=== PATIENT | male | born 1960 | race African-American/Black ===

== ENCOUNTER 2017-12-19 18:00 | Inpatient (IN) | payer OTHER ==
[~2017-12-19] VITALS: Ht 170.2 cm; Wt 84.4 kg
[2017-12-19 18:07] VITALS: BP 126/81
[2017-12-19] MEDS ORDERED: LANTUS100 UNIT/M SUBQ (18:15)
[2017-12-19] MEDS ORDERED: COZAAR 25 MG TA25 M1 PO (18:15)
[2017-12-19] MEDS ORDERED: CRESTOR10 MG PO (18:16)
[2017-12-19] MEDS ORDERED: HYDROCHLOROTHIA25 M2 PO (18:16)
[2017-12-19] MEDS ORDERED: AMLODIPINE BESY10 MG PO (18:16)
[2017-12-19 18:43] LABS: HEMATOCRIT 35.4 % (42.0-52.0); HEMOGLOBIN 11.5 gm/dL (14.0-18.0); MCH 20.7 pg (26.0-34.0); MCHC 32.5 g/dL (28.0-37.0); MCV 63.9 fL (80.0-100.0); MPV 9.7 fl. (7.2-11.1); NUCLEATED RBCS 0 /100WBC; PLATELET COUNT* 196 thou/uL (150-400); RBC 5.54 mil/uL (4.50-6.00); RDW-CV 16.8 % (10.5-14.5); WBC 11.8 thou/uL (4.0-11.0)
[2017-12-19 18:48] LABS: CALCIUM 8.5 mg/dL (8.5-10.1); CREATININE 2.1 mg/dL (0.6-1.3); POTASSIUM 3.4 mmol/L (3.5-5.1)
[2017-12-19 18:49] LABS: APTT 31.9 Seconds (25.0-31.3); PROTIME 10.3 Seconds (9.20-11.50)
[2017-12-19 19:01] LABS: ALBUMIN 3.2 g/dL (3.4-5.0); CK-MB MASS 0.8 ng/mL (<0.5-3.6); TOTAL BILIRUBIN 0.8 mg/dL (<0.1-1.0); TOTAL PROTEIN 8.3 g/dL (6.4-8.2)
[2017-12-19 19:15] LABS: ABSOLUTE LYMPHOCYTES 2.2 thou/uL (0.8-5.3); ABSOLUTE NEUTROPHILS 7.6 thou/uL (1.6-8.1)
[2017-12-19 19:16] LABS: HYPOCHROMASIA 2+; PLATELET ESTIMATE ADEQUATE
[2017-12-19 19:17] LABS: MICROCYTES 2+
[2017-12-19 19:18] LABS: ANISOCYTOSIS 1+
[2017-12-19 20:38] LABS: URINE BILIRUBIN NEGATIVE (Negative); URINE BLOOD TRACE (Negative); URINE CLARITY CLEAR; URINE COLOR YELLOW; URINE GLUCOSE-RANDOM NEGATIVE (Negative); URINE KETONES NEGATIVE (Negative); URINE LEUKOCYTES-REFLEX NEGATIVE (Negative); URINE NITRITE-REFLEX NEGATIVE (Negative); URINE PROTEIN NEGATIVE (Negative); URINE SPECIFIC GRAVITY 1.015 (1.005-1.030); URINE UROBILINOGEN 0.2 E.U./dl (0.2-1.0)
[2017-12-19 20:46] LABS: AMP/METHAMP Negative (Negative); BARBITURATES Negative (Negative); BENZODIAZEPINES Negative (Negative); COCAINE Negative (Negative); METHADONE Negative (Negative); OPIATES Negative (Negative); PCP Negative (Negative); THC POSITIVE (Negative)
[2017-12-19 21:52] VITALS: BP 95/57
[2017-12-19 22:30] VITALS: BP 99/59
[2017-12-19 23:00] VITALS: BP 114/66
[2017-12-20] VITALS (17 sets, daily range): BP systolic 100–140; BP diastolic 57–84
[2017-12-20 03:47] LABS: HEMATOCRIT 30.9 % (42.0-52.0); HEMOGLOBIN 9.8 gm/dL (14.0-18.0); MCH 20.8 pg (26.0-34.0); MCHC 31.7 g/dL (28.0-37.0); MCV 65.5 fL (80.0-100.0); MPV 9.2 fl. (7.2-11.1); RBC 4.72 mil/uL (4.50-6.00); RDW-CV 17.2 % (10.5-14.5); WBC 8.8 thou/uL (4.0-11.0)
[2017-12-20 04:05] LABS: PHOSPHORUS* 3.8 mg/dL (2.5-4.9)
[2017-12-20 04:07] LABS: AMMONIA < 10 umol/L (11-32)
[2017-12-20 04:26] LABS: ALBUMIN 2.5 g/dL (3.4-5.0); CALCIUM 7.6 mg/dL (8.5-10.1); CREATININE 1.2 mg/dL (0.6-1.3); POTASSIUM 3.4 mmol/L (3.5-5.1); TOTAL BILIRUBIN 0.5 mg/dL (<0.1-1.0); TOTAL PROTEIN 6.8 g/dL (6.4-8.2)
[2017-12-20 08:55] LABS: % SATURATION 18 % (20-39); IRON 30 ug/dL (50-175)
--- NOTE | 2017-12-20 10:45 | EKG ---
[place] [address] ELECTROCARDIOGRAM REPORT Name: BILL HOUSE Room: [address] ADM IN M.R.#: [id number] Admission: 12/19/17 Attend Phys: Roni Hudson Discharge: Date of : 60 Report #: [id number] THIS REPORT FOR: //name// [facility] ED Test Date: 2017-12-19 Test Time: 18:22:35 Pat Name: BILL HOUSE Department: Room: [facility] Gender: M Conditioning Coach: KRIS : 1960 Requested By: Michaela Delgado Order Number: [id number] MD: Andrew Galdamez Measurements Intervals Crane Rate: 92 P: 59 MT: 163 QRS: 40 QRSD: 91 T: 66 QT: 384 QTc: 476 Interpretive Statements Sinus tachycardia Multiform ventricular premature complexes Minimal ST elevation, anterior leads Baseline wander in lead(s) I,II,aVR,aVL,V3,V5,V6 No previous ECG available for comparison Electronically Signed On 12-20-2017 10:45:16 CDT by Andrew Galdamez [email or web address] <ELECTRONICALLY SIGNED> By: Andrew Galdamez MD, [facility] 12/20/17 1045 182 182 Andrew Galdamez MD, [facility] /EPI
[2017-12-21 00:20] VITALS: BP 130/69
[2017-12-21 04:43] VITALS: BP 137/71
[2017-12-21 04:48] LABS: HEMATOCRIT 30.6 % (42.0-52.0); HEMOGLOBIN 9.9 gm/dL (14.0-18.0); MCH 20.8 pg (26.0-34.0); MCHC 32.4 g/dL (28.0-37.0); MCV 64.3 fL (80.0-100.0); RBC 4.75 mil/uL (4.50-6.00); RDW-CV 16.8 % (10.5-14.5); WBC 7.8 thou/uL (4.0-11.0)
[2017-12-21 05:02] LABS: ALBUMIN 2.5 g/dL (3.4-5.0); CREATININE 0.9 mg/dL (0.6-1.3); MAGNESIUM 1.7 mg/dL (1.8-2.4); POTASSIUM 3.5 mmol/L (3.5-5.1); TOTAL BILIRUBIN 0.8 mg/dL (<0.1-1.0); TOTAL PROTEIN 7.1 g/dL (6.4-8.2)
[2017-12-21 12:00] VITALS: BP 122/79
[2017-12-21 15:43] VITALS: BP 130/79
[2017-12-22] VITALS: BP 143/83
[2017-12-22 04:18] VITALS: BP 151/87
[2017-12-22 09:00] VITALS: BP 131/86
[2017-12-22 11:31] LABS: ABSOLUTE BASOPHILS 0.1 thou/uL (0.0-0.2); ABSOLUTE EOSINOPHILS 0.1 thou/uL (0.0-0.7); ABSOLUTE LYMPHOCYTES 2.4 thou/uL (0.8-5.3); ABSOLUTE NEUTROPHILS 3.9 thou/uL (1.6-8.1); HEMATOCRIT 30.4 % (42.0-52.0); HEMOGLOBIN 9.5 gm/dL (14.0-18.0); MCH 20.5 pg (26.0-34.0); MCHC 31.3 g/dL (28.0-37.0); MCV 65.5 fL (80.0-100.0); MONOCYTES 13.4 %; NUCLEATED RBCS 0 /100WBC; PLATELET COUNT* 239 thou/uL (150-400); POLYS 52.6 %; RBC 4.64 mil/uL (4.50-6.00); RDW-CV 16.8 % (10.5-14.5); WBC 7.5 thou/uL (4.0-11.0)
[2017-12-22 11:34] LABS: CALCIUM 7.9 mg/dL (8.5-10.1); CREATININE 0.8 mg/dL (0.6-1.3); POTASSIUM 3.6 mmol/L (3.5-5.1)
[2017-12-22 12:00] VITALS: BP 135/87
[2017-12-22 12:14] LABS: HYPOCHROMASIA 2+; MICROCYTES 2+; PLATELET ESTIMATE ADEQUATE; POIKILOCYTOSIS 1+; TARGET CELLS 1+
[2017-12-22 12:15] LABS: ANISOCYTOSIS 2+
[2017-12-22 16:00] VITALS: BP 166/86
[2017-12-22 20:00] VITALS: BP 159/86
[2017-12-23] VITALS: BP 144/78
[2017-12-23 04:00] VITALS: BP 167/88
[2017-12-23 04:52] LABS: HEMATOCRIT 28.4 % (42.0-52.0); HEMOGLOBIN 9.1 gm/dL (14.0-18.0); MCH 20.8 pg (26.0-34.0); MCHC 32.2 g/dL (28.0-37.0); MCV 64.7 fL (80.0-100.0); RBC 4.39 mil/uL (4.50-6.00); RDW-CV 17.1 % (10.5-14.5); WBC 8.7 thou/uL (4.0-11.0)
[2017-12-23 05:20] LABS: ALBUMIN 2.5 g/dL (3.4-5.0); CALCIUM 7.9 mg/dL (8.5-10.1); CREATININE 0.7 mg/dL (0.6-1.3); MAGNESIUM 1.3 mg/dL (1.8-2.4); POTASSIUM 3.5 mmol/L (3.5-5.1); TOTAL BILIRUBIN 0.6 mg/dL (<0.1-1.0); TOTAL PROTEIN 6.8 g/dL (6.4-8.2)
[2017-12-23 08:00] VITALS: BP 158/87
[2017-12-23] MEDS ORDERED: KEPPRA 500 MG500 M1 PO (11:25)
[2017-12-23 11:49] VITALS: BP 137/76
[2017-12-23 13:52] VITALS: BP 137/76
[2017-12-25 15:08] LABS: HGB SOLUBILITY Negative (Negative)
--- NOTE | 2018-01-03 09:32 | EEG ---
[address] [address] EEG STUDY REPORT Name: BILL [facility]SE Room: [address] IN M.R.#: [id number] Admission: 12/19/17 Attend Phys: Roni Hudson Discharge: 12/23/17 Date of : 60 Report #: [id number] THIS REPORT FOR: //name// CC: Elissa Coronado DATE OF SERVICE: 12/21/2017 This patient is being evaluated for syncope. EEG was done by placing the electrodes by standard 10-20 system of electrode placement. Both referential and sequential montages were used for recording. Background activity in this patient's EEG is about 10 Hz and 40 microvolt. It is a symmetrical activity. Photic stimulation is unremarkable. The patient went to sleep that is associated with bilateral slowing and vertex sharp waves. Throughout the record, no active epileptiform activity was noticed. IMPRESSION: This patient's EEG does not demonstrate any clear-cut epileptiform activity. It might be mentioned that EEG can be normal in a patient with a seizure disorder. Thank you very much for this referral. <ELECTRONICALLY SIGNED> By: Warren Menjivar MD 01/03/18 0932 1946 Pelena Menjivar MD /nt
--- NOTE | 2018-01-03 09:32 | CON ---
[facility] [address] [place] [address] CONSULTATION Name: BILL HOUSE Room: [address] IN M.R.#: [id number] Admission: 12/19/17 Attend Phys: Roni Hudson Discharge: 12/23/17 Date of : 60 Report #: [id number] THIS REPORT FOR: //name// CC: Elissa Coronado DATE OF SERVICE: 12/21/2017 HISTORY OF PRESENT ILLNESS: This is a 57-year-old male patient who was evaluated by me for seizures. The history is not well defined and I am not sure, it is very straightforward. It also has some discrepancy from what is recorded previously. He indicates that he never had seizure before. He had a seizure starting Saturday. He and his think he may have had 4-5 seizures since then. He said he stopped drinking alcohol 2-3 weeks ago. That history is different than the history he has provided previously and which is recorded in his chart. I asked him to be straightforward in that history, but that is the only history he gave me. He says that his blood sugar and blood pressure was fluctuating along with seizures. It has been elevated, but has not been documented to have any hypoglycemia. REVIEW OF SYSTEMS: Indicates he has a history of diabetes. He has a history of hypertension, but does not have a history of seizures as I understand. He denies any history of stroke and he appeared to be anemic. When he came in, he had a slight temperature at 100.2, but he has been afebrile here. He has a history of heavy alcohol intake. He stopped drinking alcohol. The 14-point review of system was carried out and this was his relevant 14-point of review of systems. PAST MEDICAL HISTORY: Negative for seizure, except starting this week. FAMILY HISTORY: Negative for early age stroke. SOCIAL HISTORY: He smokes very little, but drinks a lot of alcohol, but has stopped doing it last 2-3 weeks. PHYSICAL EXAMINATION: Indicates he is alert, responsive, able to follow simple and complex command. His speech, concentration, fund of knowledge and memory is at his baseline. Cranial nerve examination 2-12 looks unremarkable. He has symmetrical strength, sensation, reflexes and tone in all 4 extremities. Rnhyqj-fm-[id number] is unremarkable. His pupil is slightly asymmetrical, but he said his vision is okay. I could not look at the fundus. He is a very well-built individual who does not have any dysmorphic features of eyes, ears and face. His cardiac or respiratory examination is unremarkable. [place] [address] CONSULTATION Name: BILL HOUSE Room: [address] IN M.R.#: [id number] Admission: 12/19/17 Attend Phys: Roni Hudson Discharge: 12/23/17 Date of : 60 Report #: [id number] hemoglobin of 9.9. His blood pressure is 122/79, respirations 16, pulse is 91, temperature is 98.0. LABORATORY DATA: His magnesium was low at 1.7. His liver functions and his B12 is okay. His TSH is okay. IMPRESSION: This patient has what looks like multiple seizures. They can be alcohol related, but they are not a typical pattern of alcohol withdrawal seizure. He has drunk for a long time and he is predisposed to have seizure. I talked to him about the pros and cons of anticonvulsants. He wants to stay on anticonvulsant, so I leave him on Keppra. RECOMMENDATIONS: 1. Keppra. 2. Seizure precautions, which I have discussed with him in great detail. 3. Driving restrictions that he cannot drive for 6 months from the last seizure. 4. We will check an MRI and an EEG. 5. Evaluation and management of his systemic problems including diabetes and hypertension by yourself. Thank you very much for this referral. <ELECTRONICALLY SIGNED> By: Warren Menjivar MD 01/03/18 0932 1302 [id number] Menjivar MD /nt
--- NOTE | 2018-01-05 12:05 | CON ---
[facility] [address] [place] [address] CONSULTATION Name: BILL [facility]SE Room: [address] IN M.R.#: [id number] Admission: 12/19/17 Attend Phys: Roni Hudson Discharge: 12/23/17 Date of : 60 Report #: [id number] THIS REPORT FOR: //name// CC: Elissa Rivera MD [facility] Frederick Coronado DO DATE OF SERVICE: 12/22/2017 REFERRING PHYSICIAN: Frederick Coronado DO REASON FOR CONSULTATION: Anemia. IMPRESSION: 1. 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 2. Recent bout of blood in his urine, as well as in the stool. 3. Intermittent solid dysphagia with mild acid reflux issues. 4. Seizure disorder, thought to be related to alcohol withdrawal. 5. Chronic alcohol abuse. 6. Degenerative joint disease, requiring intermittent Aleve. RECOMMENDATIONS: 1. Await of the patient's neurologic evaluation before proceeding with any further studies. 2. We will check additional blood test to ensure this is not sickle cell trait or some form of thalassemia. 3. Request reports from his primary care provider and from [facility], as the patient states he had a colonoscopy in 2016. They are not sure of the results of same. 4. Once he has been cleared by neurology, I would ask that he undergo both upper and lower endoscopy during his hospital stay. 5. We will hold off on oral iron replacement until after we completed his GI evaluation, as it will make it difficult to prep the patient's colon and it also mimics melena. 6. I discussed these plans with the patient, as well as his and they are agreeable to the same. discharge, the plan is to get upper and lower endoscopy done as an outpatient in the near future. I am okay with that plan as well. HISTORY OF PRESENT ILLNESS: The patient is a pleasant 58-year-old -Honduran male who was admitted to [place] [address] CONSULTATION Name: BILL HOUSE Room: [address] IN [facility].#: [id number] Admission: 12/19/17 Attend Phys: Roni Hudson Discharge: 12/23/17 Date of : 60 Report #: [id number] pain associated with nausea, vomiting and apparently seizure issues. With regards to this, he has currently been undergoing evaluation by neurology and thought to be probably related to alcohol withdrawal seizures, but they are in the process of doing further testing with regards to the same. He has already undergone CT scans and other studies, which have been unrevealing for source for the same. With regards to his GI tract, he has had some problem with chronic acid reflux, intermittent solid dysphagia, but nothing has been progressive. He denies any complaints of any abdominal pain or any problem with his bowels or bowel frequency. He denies any black stools, tarry stools or any blood in the stools. He states that he underwent a colonoscopy within the last couple of years at [facility], but he does not recall results of the same. He is admitted to the hospital for further evaluation and treatment. ALLERGIES: PENICILLIN. MEDICATIONS: At home include losartan, hydrochlorothiazide, amlodipine, insulin, and rosuvastatin. He also takes Aleve. PAST MEDICAL AND SURGICAL HISTORY: Remarkable for underlying hypertension, diabetes, history of chronic DJD, arthritis, and history of anemia. He has had no previous surgeries. SOCIAL HISTORY: The patient smokes quarter to half pack per day. Drinks alcohol on daily basis in the form of vodka. He also smokes marijuana. FAMILY HISTORY: Negative. PHYSICAL EXAMINATION: GENERAL: Revealed a 57-year-old male who is awake and alert. CARDIOPULMONARY: Revealed a regular rate and rhythm. LUNGS: Clear. ABDOMEN: Soft, not tender. No rebound or guarding noted. LABORATORY TESTS: Revealed a white count of 7.5, hemoglobin 9.5, platelet count 239,000, MCV is 65.5 and RDW 16.8. His INR is 1.0. Sodium is 138, potassium 3.6, chloride 104, bicarbonate is 25. His BUN is 14 and creatinine 0.8. Total bilirubin 0.8, alkaline phosphatase is 64, AST is 48, ALT 69. Albumin is 2.5. His total protein is 7.1 for globulin of 4.6. Urine drug screen is positive for marijuana. Alcohol level is negative. Iron saturation 18%, folic acid level was 80.8. B12 level 1692. TSH 0.695. DISCUSSION: At the present time, he has some GI issues, but he also has issues related to seizures. We will hold off on endoscopic evaluation until we have clearance from neurology. Once this is achieved, we will proceed with endoscopic evaluation of his upper and lower GI tract. We will also request [address] [address] CONSULTATION Name: BILL HOUSE Room: [address] IN ..#: [id number] Admission: 12/19/17 Attend Phys: Roni Hudson Discharge: 12/23/17 Date of : 60 Report #: [id number] records from [facility] and will make further recommendations during hospital stay. <ELECTRONICALLY SIGNED> By: Manuel Mckeon DO 01/05/18 1205 1708 [id number] Mckeon DO /
== END 2017-12-23 14:54 | disposition home or self-care (01) | DRG 377 ==
LOC: M.ERS 18:00 → M.2W 20:06 → M.ICU 20:06 → M.TBA-ER 20:06 → M.ICU 21:49 → M.2W 12-20 15:06
PROVIDERS: Emergency Medicine; Family Medicine; Internal Medicine; Internal Medicine Gastroenterology; Personal Emergency Response Attendant; ADMIT Internal Medicine
DX: K57.31 Diverticulosis of large intestine without perforation or abscess with bleeding (principal); R65.11 Systemic inflammatory response syndrome (SIRS) of non-infectious origin with acute organ dysfunction; N17.9 Acute kidney failure, unspecified; K26.4 Chronic or unspecified duodenal ulcer with hemorrhage; E11.9 Type 2 diabetes mellitus without complications; F17.210 Nicotine dependence, cigarettes, uncomplicated; F12.90 Cannabis use, unspecified, uncomplicated; F10.10 Alcohol abuse, uncomplicated; D50.9 Iron deficiency anemia, unspecified; R13.10 Dysphagia, unspecified; M19.90 Unspecified osteoarthritis, unspecified site; E86.0 Dehydration; Z88.0 Allergy status to penicillin; Z91.02 Food additives allergy status; Z79.899 Other long term (current) drug therapy